=== PATIENT | male | born 1985 | race Caucasian/White ===

== ENCOUNTER → 2025-08-28 | Emergency (ER) | payer OTHER ==
[~2025-08-28] VITALS: Ht 180.3 cm; Wt 97.5 kg
[~2025-08-28] MED LIST: 0.9 % SODIUM CHLORIDE 1,000 ML IV ONE; HUMALOG100 UNIT/2 SQ; ONDANSETRON HCL 2 MG/ML VIAL IV ONE; ONDANSETRON HCL 2 MG/ML VIAL ONE
[2025-08-28 16:59] LABS: BASO % 0.5 % (0.1-1.2); EOS # 0.00 (0.04-0.54); EOS % 0.0 % (0.7-7.0); LYMPH # 2.69 (1.18-3.74); LYMPH % 17.6 % (19.3-53.1); MEAN PLATELET VOLUME 10.70 fl (9.4-12.4); MONO # 1.53 (0.24-0.82); MONO % 10.0 % (4.7-12.5); NEUT # 10.91 (1.56-6.13); NEUT % 71.5 % (34.0-71.1); RED CELL DISTRIBUTION WIDTH 13.2 % (11.6-14.4)
[2025-08-28 17:20] LABS: ALT/SGPT 30.0 U/L (12-78); AST/SGOT 17.0 U/L (15-37); BILIRUBIN TOTAL 0.69 mg/dL (0.3-1.2); BUN CREA RATIO 11.0 (7.0-25.0); CREATININE SERUM 3.38 mg/dL (0.70-1.30); GFR 20.2; GLOBULINA 3.5 G/DL (2.4-3.5); GLUCOSE FASTING 152.0 mg/dL (65-100); OSMOLALITY SERUM 297.0 MOSM/KG (275-295)
== END | disposition left against medical advice (07) ==
LOC: ER 15:27
PROVIDERS: Preventive Medicine Public Health & General Preventive Medicine
DX: R11.2 Nausea with vomiting, unspecified (principal); E86.0 Dehydration; E11.9 Type 2 diabetes mellitus without complications; Z79.4 Long term (current) use of insulin